=== PATIENT | female | born 1985 | race African-American/Black ===

== ENCOUNTER 2016-10-01 09:54 | Day surgery (SDC) | payer OTHER ==
[2016-09-30 10:54] LABS: HEMOGLOBIN 14.2 g/dL (12.0-15.5); HGB HCT DIFFERENCE 0.6; MEAN CORPUSCULAR HGB CONC 33.7 g/dL (32.0-36.0); MEAN CORPUSCULAR VOLUME 89 fl (80-97); RED BLOOD COUNT 4.73 10^6/uL (3.72-5.28); RED CELL DISTRIBUTION WIDTH 13.5 % (11.5-14.0); WHITE BLOOD COUNT 6.8 10^3/uL (4.0-10.5)
[2016-09-30 10:58] LABS: APPEARANCE,URINE CLEAR; BILIRUBIN,URINE NEGATIVE (NEGATIVE); GLUCOSE, URINE NEGATIVE (NEGATIVE); KETONES,URINE NEGATIVE (NEGATIVE); LEUKOCYTE ESTERASE,URINE NEGATIVE (NEGATIVE); NITRITE,URINE NEGATIVE (NEGATIVE); PROTEIN,URINE NEGATIVE (NEGATIVE); URINE SPECIFIC GRAVITY 1.014; UROBILINOGEN,URINE NEGATIVE mg/dL (<2.0)
[~2016-10-01 09:54] MED LIST: LACTATED RINGERS 1000 ML IV PRN
[2016-10-01] MEDS ORDERED: ALBUTEROL SULFATE 0.083% NEB 2.5 MG/3 ML AMPUL NEB ONE (10:21)
[2016-10-01] MEDS ORDERED: MIDAZOLAM 2 MG/2 ML INJ ONE (11:30)
[2016-10-01] MEDS ORDERED: FENTANYL CITRATE INJ/PF 100 MCG/2 ML AMPUL ONE (11:30)
[2016-10-01] MEDS ORDERED: MORPHINE SULFATE 10 MG/ML INJ ONE (11:31)
[2016-10-01] MEDS ORDERED: PROPOFOL INJ 200 MG/20 ML VIAL IV ONE (11:31)
[2016-10-01] MEDS ORDERED: ACETAMINOPHEN 0 ML IV ONE (11:31)
[2016-10-01] MEDS ORDERED: METHYLENE BLUE/PF INJ 100 MG/10 ML SDV ONE (11:31)
--- NOTE | 2016-10-01 12:04 | EKG REPORT ---
SEVERITY:- NORMAL ECG - SINUS RHYTHM : Confirmed by: Renata Durand 01-Oct-2016 12:02:49
[2016-10-01] MEDS ORDERED: IBUPROFEN INJ 800 MG/8 ML VIAL IV ONE (12:15)
[2016-10-01 12:26] LABS: ANION GAP 10 (5-19); BLOOD UREA NITROGEN 13 mg/dL (7-20); CALCIUM 9.5 mg/dL (8.4-10.2); CARBON DIOXIDE 28 mmol/L (22-30); CHLORIDE 104 mmol/L (98-107); CREATININE RESULT 0.84 mg/dL (0.52-1.25); GLUCOSE 102 mg/dL (75-110); POTASSIUM 4.7 mmol/L (3.6-5.0); SODIUM 141.8 mmol/L (137-145)
[2016-10-01] MEDS ORDERED: MEPERIDINE HCL/PF INJ 25 MG/1 ML DISP.SYRIN IV PRN (12:27)
[2016-10-01] MEDS ORDERED: FENTANYL CITRATE INJ/PF 100 MCG/2 ML AMPUL IV PRN ×3 (12:27)
[2016-10-01] MEDS ORDERED: MORPHINE SULFATE 10 MG/ML INJ IV PRN (12:27)
[2016-10-01] MEDS ORDERED: DIPHENHYDRAMINE HCL 50 MG/ML VIAL IV PRN (12:27)
[2016-10-01] MEDS ORDERED: PROMETHAZINE HCL INJ 25 MG/1 ML VIAL IV PRN ×2 (12:27)
--- NOTE | 2016-10-01 13:03 | Operative Report ---
Operative Report DATE OF SURGERY: 10/01/16 PREOPERATIVE DIAGNOSIS: Pelvic pain POSTOPERATIVE DIAGNOSIS: Endometriosis OPERATION: Diagnostic laparoscopy with cautery of endometriosis with the Harmonic scalpel SURGEON: YASMANY LUCAS ANESTHESIA: GA TISSUE REMOVED OR ALTERED: Cautery of endometriosis in the posterior cul-de-sac COMPLICATIONS: None ESTIMATED BLOOD LOSS: minimal INTRAOPERATIVE FINDINGS: Endometriosis in the posterior cul-de-sac. PROCEDURE: The patient was taken to the OR and placed in supine position. Gen. anesthesia was induced. She was placed in low dorsal lithotomy position using Faraz stirrups. Her abdomen perineum and vagina were prepared and draped in sterile fashion. Bladder was drained with red rubber catheter. A sponge stick was placed in the vagina for manipulation of the uterus. An incision was made the umbilicus natural umbilical defect identified and 5 mm port placed with appropriate placement by laparoscopy. The abdomen was insufflated with CO2 gas. The pelvis was good. The suprapubic incision was made and a 5 mm port placed under laparoscopic visualization. A left lateral port was placed in the laparoscopic visualization as well. Tubes and ovaries uterus appeared normal. Posterior cul-de-sac had several areas of endometriosis using the Harmonic scalpel these were cauterized. Some of the lesions were cystic in nature and drained dark fluid. At the end of the case hemostasis was good. The ports were removed. The gas was allowed to escape from the abdomen. The umbilical port and scope were removed at same time. The fascia at the umbilicus was closed with 2-0 Vicryl stitch and skin closed with 4-0 undyed Vicryl stitch at all 3 sites. She was extubated and taken to the recovery room in stable condition.
[2016-10-01] MEDS ORDERED: KETOROLAC TROMETHAMINE INJ/PF 30 MG/1 ML SDV IV PRN (13:31)
[2016-10-01] MEDS ORDERED: IBUPROFEN 800 MG TABLET PO PRN (13:31)
[2016-10-01] MEDS ORDERED: OXYCODONE HCL IR 5 MG TABLET PO PRN ×2 (13:32)
[2016-10-01] MEDS ORDERED: SUCCINYLCHOLINE CHLORIDE INJ 200 MG/10 ML VIAL ONE (13:49)
[2016-10-01] MEDS ORDERED: ROCURONIUM BROMIDE INJ 50 MG/5 ML VIAL IV ONE (13:49)
[2016-10-01] MEDS ORDERED: GLYCOPYRROLATE INJ 0.4 MG/2 ML VIAL ONE (13:49)
[2016-10-01] MEDS ORDERED: ONDANSETRON HCL INJ/PF 4 MG/2 ML SDV ONE (13:49)
[2016-10-01] MEDS ORDERED: DEXAMETHASONE SOD PHOSPHATE INJ 4 MG/1 ML VIAL ONE (13:49)
[2016-10-01] MEDS ORDERED: PHENYLEPHRINE HCL INJ/PF 10 MG/1 ML SDV ONE (13:49)
[2016-10-01] MEDS ORDERED: NEOSTIGMINE METHYLSULFATE 10 MG/10 ML VIAL ONE (13:49)
[2016-10-01 15:22] VITALS: BP 108/72
== END 2016-10-01 15:30 | disposition home or self-care (01) ==
LOC: OROUT 09:54
PROVIDERS: ATTEND Obstetrics & Gynecology
PROC: 0UQF4ZZ Repair Cul-de-sac, Percutaneous Endoscopic Approach (ICD-10-PCS; principal; 2016-10-01 11:45)
DX: N80.3 Endometriosis of pelvic peritoneum (principal); R10.2 Pelvic and perineal pain; N91.2 Amenorrhea, unspecified; J45.909 Unspecified asthma, uncomplicated; E28.2 Polycystic ovarian syndrome; E05.00 Thyrotoxicosis with diffuse goiter without thyrotoxic crisis or storm; E06.3 Autoimmune thyroiditis; Z87.891 Personal history of nicotine dependence; Z79.84 Long term (current) use of oral hypoglycemic drugs; Z79.51 Long term (current) use of inhaled steroids; Z79.899 Other long term (current) drug therapy
CPT/HCPCS: 36415 ×2; 83735; 85027; 81005; 81025; 80048; 93005; 93010; 94640; 58662; J2250; J3490; J1100; J3010; J2270; J2370; J0330; J2405; J2704; J1741; 840; J0131; Q9968

== ENCOUNTER 2017-05-13 14:31 | Emergency (ER) | payer OTHER ==
[2017-05-13] MEDS ORDERED: NORMAL SALINE 1000 ML 1,000 ML IV ONE (15:23)
[2017-05-13 15:56] LABS: ABSOLUTE EOSINOPHILS # (AUTO) 0.1 10^3/uL (0.0-0.6); ABSOLUTE LYMPHOCYTES (AUTO) 2.3 10^3/uL (0.5-4.7); ABSOLUTE MONOCYTES (AUTO) 0.6 10^3/uL (0.1-1.4); ABSOLUTE NEUT (AUTO) 9.9 10^3/uL (1.7-8.2); BASOPHILS % (AUTO) 0.3 % (0-2); EOSINOPHILS % (AUTO) 0.7 % (0-6); HEMATOCRIT 40.1 % (36.0-47.0); HEMOGLOBIN 13.4 g/dL (12.0-15.5); HGB HCT DIFFERENCE 0.1; LYMPHOCYTES % (AUTO) 17.5 % (13-45); MEAN CORPUSCULAR HEMOGLOBIN 29.5 pg (27.0-33.4); MEAN CORPUSCULAR HGB CONC 33.3 g/dL (32.0-36.0); MEAN CORPUSCULAR VOLUME 89 fl (80-97); MONOCYTES % (AUTO) 4.5 % (3-13); RED BLOOD COUNT 4.52 10^6/uL (3.72-5.28); RED CELL DISTRIBUTION WIDTH 13.1 % (11.5-14.0); WHITE BLOOD COUNT 12.9 10^3/uL (4.0-10.5)
[2017-05-13 16:15] LABS: ALANINE AMINOTRANSFERASE 20 U/L (9-52); ALBUMIN 3.6 g/dL (3.5-5.0); ALKALINE PHOSPHATASE 99 U/L (38-126); ANION GAP 12 (5-19); ASPARTATE AMINO TRANSFERASE 16 U/L (14-36); BILIRUBIN,DIRECT 0.1 mg/dL (0.0-0.4); BILIRUBIN,TOTAL 0.3 mg/dL (0.2-1.3); BLOOD UREA NITROGEN 8 mg/dL (7-20); CALCIUM 9.4 mg/dL (8.4-10.2); CARBON DIOXIDE 23 mmol/L (22-30); CHLORIDE 103 mmol/L (98-107); CREATINE KINASE 83 U/L (30-135); CREATININE RESULT 0.66 mg/dL (0.52-1.25); GLUCOSE 311 mg/dL (75-110); POTASSIUM 4.6 mmol/L (3.6-5.0); SODIUM 137.6 mmol/L (137-145); TOTAL PROTEIN 6.7 g/dL (6.3-8.2)
[2017-05-13 16:25] LABS: CREATINE KINASE MB 2.24 ng/mL (<4.55)
[2017-05-13 16:27] LABS: TROPONIN I 0.349 ng/mL
[2017-05-13 16:45] LABS: THYROID STIMULATING HORMONE 2.23 uIU/mL (0.47-4.68)
--- NOTE | 2017-05-13 17:13 | RADIOLOGY REPORT (SQ) ---
EXAM DESCRIPTION: CTA CHEST COMPLETED DATE/TIME: 05/13/2017 4:58 pm REASON FOR STUDY: evaled d dimer COMPARISON: None. TECHNIQUE: CT scan of the chest performed using helical scanning technique with dynamic intravenous contrast injection. Images reviewed with lung, soft tissue and bone windows. Reconstructed coronal and sagittal MPR images reviewed. Additional 3 dimensional post-processing performed to develop Maximal Intensity Projection images (SD P). All images stored on PACS. All CT scanners at this facility use dose modulation, iterative reconstruction, and/or weight based d osing when appropriate to reduce radiation dose to as low as reasonably achievable (ALARA). [facility]: Dose Right [facility]: CareDose [facility]: Dose Right [facility]: Teradose 4D [facility]: [place] CONTRAST TYPE AND DOSE: contrast/concentration: Isovue 370.00 mg/ml; Total Contrast Delivered: 80.0 ml; Total Saline Delivered: 110.1 ml Contrast bolus optimized for the pulmonary arteries. Not diagnostic for the aorta. RENAL FUNCTION: GFR > 60. RADIATION DOSE: CT Rad equipment meets quality standard of care and radiation dose reduction techniq ues were employed. CTDIvol: 6.6 - 39.7 mGy. DLP: 649 mGy-cm. . LIMITATIONS: None. FINDINGS: LUNGS AND PLEURA: No masses, infiltrates, pneumothorax. No pleural effusions, calcificati ons. AORTA AND GREAT VESSELS: No aneurysm. Contrast bolus not optimized for the aorta. HEART: No pericardial effusion. No significant coronary artery calcifications. PULMONARY ARTERIES: Extensive emboli visualized in the main pulmonary arteries and the segmental bran ches; additionally there is a small saddle embolus component. No thrombus identified in the right ve ntricle. HILAR AND MEDIASTINAL STRUCTURES: No identified masses or abnormal nodes. HARDWARE: None in the chest. UPPER ABDOMEN: No significant findings. Limited exam. THYROID AND OTHER SOFT TISSUES: No masses. No adenopathy. BONES: No acute or significant finding. 3D MIPS: Confirm above findings. OTHER: No other significant finding. IMPRESSION: Extensive emboli visualized in the main pulmonary arteries and the segmental branches; a dditionally there is a small saddle embolus component. No thrombus identified in the right ventricle. COMMENT: These results were called to Dr. Alvarado at 1704 hours. Results were confirmed and read b ack. Quality ID # [id number]: Final reports with documentation of one or more dose reduction techniques (e.g., Au tomated exposure control, adjustment of the mA and/or kV according to patient size, use of iterative reconstruction technique) TECHNICAL DOCUMENTATION: JOB ID: [id number] [place]-72 2010 [employer]- All Rights Reserved
[2017-05-13 17:33] LABS: PROTHROMBIN TIME 13.2 SEC (11.4-15.4)
[2017-05-13 17:34] LABS: PARTIAL THROMBOPLASTIN TIME 31.9 SEC (23.5-35.8)
--- NOTE | 2017-05-13 17:41 | ER Document Report ---
ED General - General Chief Complaint: Chest Pain Stated Complaint: CHEST PAIN Time Seen by Provider: 05/13/17 14:42 TRAVEL OUTSIDE OF THE [place]. IN LAST 30 DAYS: No - HPI Patient complains to provider of: Palpitations Notes: Patient coming in for palpitations. States ongoing for the last 2 days. Patient also states substernal chest pain especially when the patient is moving around. Patient states recently treated with antibiotics for cough is nonproductive. Patient also complains of some underlying weight gain and fatigue. Patient resting comfortably upon my evaluation patient is tachycardic with a heart rate past between 100-120. Denies any recent travel patient states currently on control. No smoking no drugs alcohol. - Related Data Allergies/Adverse Reactions: acetaminophen [From Tylenol] Allergy (Mild, Verified 09/30/16 10:09) Hives Adhesive Bandage * [Adhesive Bandage] Allergy (Mild, Verified 09/30/16 10:09) RASH yeast, dried [Yeast] Allergy (Mild, Verified 09/30/16 10:09) Hives Past Medical History - Social History Smoking Status: Never Smoker Chew tobacco use (# tins/day): No Frequency of alcohol use: None Drug Abuse: None Family History: Reviewed & Not Pertinent Patient has suicidal ideation: No Patient has homicidal ideation: No - Past Medical History Cardiac Medical History: Denies: Hx Coronary Artery Disease, Hx Heart Attack, Hx Hypertension Pulmonary Medical History: Reports: Hx Asthma - MILD, MOD WITH EXERCISE Denies: Hx Bronchitis, Hx COPD, Hx Pneumonia Neurological Medical History: Denies: Hx Cerebrovascular Accident, Hx Seizures Renal/ Medical History: Denies: Hx Peritoneal Dialysis Musculoskeltal Medical History: Denies Hx Arthritis Past Surgical History: Reports: Hx Abdominal Surgery - Immunizations Hx Diphtheria, Pertussis, Tetanus Vaccination: Yes Review of Systems - Review of Systems Constitutional: No symptoms reported EENT: No symptoms reported Cardiovascular: No symptoms reported Respiratory: No symptoms reported Gastrointestinal: No symptoms reported Genitourinary: No symptoms reported Female Genitourinary: No symptoms reported Musculoskeletal: No symptoms reported Skin: No symptoms reported Hematologic/Lymphatic: No symptoms reported Neurological/Psychological: No symptoms reported Physical Exam - Vital signs Vitals: Pulse Ox 99 05/13/17 14:43 Interpretation: Tachycardic - General General appearance: Appears well, Alert - HEENT Head: Normocephalic, Atraumatic Eyes: Normal Pupils: PERRL - Respiratory Respiratory status: No respiratory distress Chest status: Nontender Breath sounds: Normal Chest palpation: Normal - Cardiovascular Rhythm: Tachycardia Heart sounds: Normal auscultation Murmur: No - Abdominal Inspection: Normal Distension: No distension Bowel sounds: Normal Tenderness: Nontender Organomegaly: No organomegaly - Back Back: Normal, Nontender - Extremities General upper extremity: Normal inspection, Nontender, Normal color, Normal ROM , Normal temperature General lower extremity: Normal inspection, Nontender, Normal color, Normal ROM , Normal temperature, Normal weight bearing. No: Indio's sign - Neurological Neuro grossly intact: Yes Cognition: Normal Orientation: AAOx4 [place] Coma Scale Eye Opening: Spontaneous [place] Coma Scale Verbal: Oriented [place] Coma Scale Motor: Obeys Commands [place] Coma Scale Total: 15 Speech: Normal Motor strength normal: LUE, RUE, LLE, RLE Sensory: Normal - Psychological Associated symptoms: Normal affect, Normal mood - Skin Skin Temperature: Warm Skin Moisture: Dry Skin Color: Normal Course - Re-evaluation Re-evalutation: 05/13/17 17:35 Patient confirmed to have extensive PE load bilaterally also with a saddle component. Discussed briefly with the hospitalist who recommended transfer to tertiary care facility for possible lytic procedure. Discussed with Dr. Lawler of [facility] who accepted the patient in transfer however at this time request that we hold off on initiating anticoagulation therapy is that she is not familiar with the procedure at their facility and thinks that is heparin or Lovenox may be contraindicated to performing catheter directed thrombolytic therapy. Will contact their team for further information and will call me back with the correct intact coagulation agent otherwise patient remained stable no signs of hypoxia hypotension cor pulmonale. 05/13/17 17:39 05/13/17 17:57 Return phone call from Dr. Lawler recommends anticoagulation with either heparin or Lovenox if there is no contraindication further cath directed thrombolytic therapy at [facility]. Patient will be started on Lovenox. - Vital Signs Vital signs: Temp Pulse Resp BP Pulse Ox 98.6 F 18 119/90 H 100 05/13/17 17:05 05/13/17 17:05 05/13/17 17:05 05/13/17 17:05 - Laboratory Result Diagrams: 05/13/17 15:33 05/13/17 15:33 Laboratory results interpreted by me: 05/13/17 05/13/17 05/13/17 15:33 15:33 15:33 WBC 12.9 H Absolute Neutrophils 9.9 H D-Dimer 3.22 H Glucose 311 H NT-Pro-B Natriuret Pep 05/13/17 15:33 WBC Absolute Neutrophils D-Dimer Glucose NT-Pro-B Natriuret Pep 1840 H Discharge - Discharge Clinical Impression: Pulmonary embolism Qualifiers: Pulmonary embolism type: saddle Chronicity: acute Acute cor pulmonale presence : without acute cor pulmonale Qualified Code(s): I26.92 - Saddle embolus of pulmonary artery without acute cor pulmonale Referrals: SELIN ALEJO DO [Primary Care Provider] - Follow up as needed
[2017-05-13] MEDS ORDERED: ENOXAPARIN SODIUM INJ 100 MG/1 ML DISP.SYRIN SUBCUT SCH (18:00)
--- NOTE | 2017-05-13 18:51 | EKG REPORT ---
SEVERITY:- BORDERLINE ECG - SINUS TACHYCARDIA BORDERLINE T ABNORMALITIES, INFERIOR LEADS : Confirmed by: Turner Olson MD 13-May-2017 18:50:05
[2017-05-13 19:26] LABS: APPEARANCE,URINE CLEAR; BILIRUBIN,URINE NEGATIVE (NEGATIVE); GLUCOSE, URINE >=500 mg/dL (NEGATIVE); KETONES,URINE TRACE mg/dL (NEGATIVE); LEUKOCYTE ESTERASE,URINE NEGATIVE (NEGATIVE); NITRITE,URINE NEGATIVE (NEGATIVE); PROTEIN,URINE NEGATIVE (NEGATIVE); UROBILINOGEN,URINE NEGATIVE mg/dL (<2.0)
[2017-05-13 19:33] LABS: URINE SPECIFIC GRAVITY > 1.060
--- NOTE | 2017-05-13 21:33 | ER Document Report ---
Doctor's Note Notes: 05/13/17 21:33 Transport has arrived for the patient. Her vital signs are stable with heart rate of 105, blood pressure 123/83, pulse ox 99%. She feels well and she is comfortable at this time.
[2017-05-13 22:02] VITALS: BP 123/83
== END 2017-05-13 21:50 | disposition short-term general hospital (02) ==
LOC: ER 14:31
DX: I26.92 Saddle embolus of pulmonary artery without acute cor pulmonale (principal); R07.9 Chest pain, unspecified; R00.2 Palpitations; R05 Cough
CPT/HCPCS: 93005; 99285; 96372; 96360; 36415; 84439; 82553; 82550; 84702; 83735; 84443; 85025; 85610; 85730; 80053; 81001; 84484; 85379; 83880; 71275; 93010; J7030; J1650

== ENCOUNTER 2017-05-29 22:00 | Emergency (ER) | payer OTHER ==
[2017-05-29] MEDS ORDERED: PANTOPRAZOLE SODIUM 40 MG VIAL IV ONE (22:48)
[2017-05-29] MEDS ORDERED: NORMAL SALINE 1000 ML 1,000 ML IV ONE (22:48)
[2017-05-29] MEDS ORDERED: FAMOTIDINE 20 MG TABLET PO ONE (22:48)
[2017-05-29] MEDS ORDERED: SUCRALFATE 1 GM TABLET PO ONE (22:48)
--- NOTE | 2017-05-29 23:17 | ER Document Report ---
ED GI/ - General Mode of Arrival: Ambulatory Information source: Patient TRAVEL OUTSIDE OF THE [place] IN LAST 30 DAYS: No - HPI Patient complains to provider of: Abdominal pain Onset: This afternoon - 1400 Location: Epigastric Associated symptoms: Other - see notes above <RANDEE CAIN - Last Filed: 05/30/17 00:08> <PAMELAYADIEL ANN - Last Filed: 05/30/17 01:56> - General Chief Complaint: Abdominal Pain Stated Complaint: ABDOMINAL PAIN Time Seen by Provider: 05/29/17 22:31 Notes: 32 year old female with history of pulmonary emboli (05/13/2017; medicated with Eliquis) presents to the ED complaining of epigastric abdominal pain that started earlier this afternoon around 1400 while eating a chicken salad. Patient reports she has pain while eating, but does not acknowledge any pain after eating. Patient denies any bleeding, difficulty or painful breathing, or nausea. (RANDEE CAIN) - Related Data Allergies/Adverse Reactions: acetaminophen [From Tylenol] Allergy (Mild, Verified 09/30/16 10:09) Hives Adhesive Bandage * [Adhesive Bandage] Allergy (Mild, Verified 09/30/16 10:09) RASH yeast, dried [Yeast] Allergy (Mild, Verified 09/30/16 10:09) Hives Past Medical History - General Information source: Patient - Social History Smoking Status: Never Smoker Frequency of alcohol use: None Family History: Reviewed & Not Pertinent - Past Medical History Cardiac Medical History: Denies: Hx Coronary Artery Disease, Hx Heart Attack, Hx Hypertension Pulmonary Medical History: Reports: Hx Asthma - MILD, MOD WITH EXERCISE Denies: Hx Bronchitis, Hx COPD, Hx Pneumonia Neurological Medical History: Denies: Hx Cerebrovascular Accident, Hx Seizures Renal/ Medical History: Reports: Hx Ovarian Cysts, Other - endometriosis. Denies: Hx Peritoneal Dialysis Musculoskeltal Medical History: Denies Hx Arthritis Past Surgical History: Reports: Hx Abdominal Surgery, Hx Section - Immunizations Hx Diphtheria, Pertussis, Tetanus Vaccination: Yes <RANDEE CAIN - Last Filed: 05/30/17 00:08> Review of Systems - Review of Systems Constitutional: No symptoms reported EENT: No symptoms reported Cardiovascular: No symptoms reported Respiratory: No symptoms reported. denies: Hurts to breathe, Short of breath Gastrointestinal: See HPI, Abdominal pain. denies: Nausea Genitourinary: No symptoms reported Female Genitourinary: No symptoms reported Musculoskeletal: No symptoms reported Skin: No symptoms reported Hematologic/Lymphatic: No symptoms reported Neurological/Psychological: No symptoms reported -: Yes All other systems reviewed and negative <RANDEE CAIN - Last Filed: 05/30/17 00:08> Physical Exam - General General appearance: Alert In distress: None - HEENT Head: Normocephalic, Atraumatic Eyes: Normal Extraocular movements intact: Yes Pupils: PERRL - Respiratory Respiratory status: No respiratory distress Breath sounds: Normal - Cardiovascular Rhythm: Regular Heart sounds: Normal auscultation - Abdominal Inspection: Normal Distension: No distension Bowel sounds: Normal Tenderness: Tender - epigastric tenderness to palpation - Back Back: Normal - Extremities General upper extremity: Normal inspection, Normal ROM General lower extremity: Normal inspection, Normal ROM - Neurological Neuro grossly intact: Yes Cognition: Normal Orientation: AAOx4 [place] Coma Scale Eye Opening: Spontaneous [place] Coma Scale Verbal: Oriented [place] Coma Scale Motor: Obeys Commands [place] Coma Scale Total: 15 - Psychological Associated symptoms: Normal affect, Normal mood - Skin Skin Temperature: Warm Skin Moisture: Dry Skin Color: Normal <RANDEE CAIN - Last Filed: 05/30/17 00:08> Course - Laboratory Result Diagrams: 05/29/17 23:55 05/29/17 23:55 <RANDEE CAIN - Last Filed: 05/30/17 00:08> - Laboratory Result Diagrams: 05/29/17 23:55 05/29/17 23:55 - Diagnostic Test Radiology reviewed: Reports reviewed <YADIEL SANTIAGO - Last Filed: 05/30/17 01:56> - Re-evaluation Re-evalutation: 05/30/17 00:08 Patient has been re-evaluated and states that she is feeling better now. Patient informed that she will be re-evaluated upon receipt of lab results. ( RANDEE CAIN) 05/30/17 01:51 Patient is ultrasound showing gallstones but no evidence of infection. Blood work that his back is within normal limits. Patient is feeling completely better. Chemistry is hemolyzed. Laboratory to redraw. Patient would prefer to just go home and return if she feels worse than keep getting stuck for blood. She is very reasonable. Symptoms are more consistent with gastritis. She is not anemic and has had no dark stool. She will be discharged home with omeprazole, ranitidine, and Carafate. Return if any worsening or concerning symptoms. Stable for discharge. No further abdominal pain or tenderness to palpation. AVSS. (YADIEL SANTIAGO) - Laboratory Laboratory results interpreted by me: 05/29/17 23:55 WBC 12.3 H Discharge <RANDEE CAIN - Last Filed: 05/30/17 00:08> <YADIEL SANTIAGO - Last Filed: 05/30/17 01:56> - Discharge Clinical Impression: Epigastric pain Condition: Stable Disposition: HOME, SELF-CARE Instructions: Evaluation of Upper Abdominal Pain ([facility]) Prescriptions: Omeprazole 20 mg PO DAILY #30 tablet. Ranitidine HCl 150 mg PO BID #60 tablet Sucralfate [Carafate 1 gm Tablet] 1 gm PO ACHS #60 tablet Forms: Return to Work Referrals: SELIN ALEJO DO [Primary Care Provider] - Follow up as needed Scribe Attestation: 05/30/17 01:56 I personally performed the services described in the documentation, reviewed and edited the documentation which was dictated to the scribe in my presence, and it accurately records my words and actions. (YADIEL SANTIAGO) Scribe Documentation - Scribe Written by Scribe:: Owen Zepeda, 05/29/2017 [id number] acting as scribe for :: Pamela <RANDEE CAIN - Last Filed: 05/30/17 00:08>
[2017-05-30 00:04] LABS: ABSOLUTE BASOPHILS # (AUTO) 0.1 10^3/uL (0.0-0.2); ABSOLUTE EOSINOPHILS # (AUTO) 0.4 10^3/uL (0.0-0.6); ABSOLUTE LYMPHOCYTES (AUTO) 3.7 10^3/uL (0.5-4.7); ABSOLUTE MONOCYTES (AUTO) 0.6 10^3/uL (0.1-1.4); ABSOLUTE NEUT (AUTO) 7.5 10^3/uL (1.7-8.2); HEMOGLOBIN 13.9 g/dL (12.0-15.5); LYMPHOCYTES % (AUTO) 30.5 % (13-45); MEAN CORPUSCULAR HEMOGLOBIN 29.8 pg (27.0-33.4); MEAN CORPUSCULAR HGB CONC 33.8 g/dL (32.0-36.0); MEAN CORPUSCULAR VOLUME 88 fl (80-97); MONOCYTES % (AUTO) 4.8 % (3-13); PLATELET COUNT 406 10^3/uL (150-450); RED BLOOD COUNT 4.66 10^6/uL (3.72-5.28); RED CELL DISTRIBUTION WIDTH 13.1 % (11.5-14.0); SEGMENTED NEUTROPHILS % (AUTO) 60.7 % (42-78); TOTAL CELLS COUNTED % (AUTO) 100 %; WHITE BLOOD COUNT 12.3 10^3/uL (4.0-10.5)
[2017-05-30 00:50] LABS: PARTIAL THROMBOPLASTIN TIME 32.6 SEC (23.5-35.8); PROTHROMBIN TIME 13.9 SEC (11.4-15.4)
[2017-05-30 00:54] LABS: APPEARANCE,URINE CLEAR; BILIRUBIN,URINE NEGATIVE (NEGATIVE); COLOR,URINE STRAW; GLUCOSE, URINE NEGATIVE (NEGATIVE); KETONES,URINE NEGATIVE (NEGATIVE); LEUKOCYTE ESTERASE,URINE NEGATIVE (NEGATIVE); NITRITE,URINE NEGATIVE (NEGATIVE); PROTEIN,URINE NEGATIVE (NEGATIVE); URINE SPECIFIC GRAVITY 1.005; UROBILINOGEN,URINE NEGATIVE mg/dL (<2.0)
--- NOTE | 2017-05-30 01:21 | RADIOLOGY REPORT (SQ) ---
EXAM DESCRIPTION: U/S ABDOMEN LIMITED W/O DOP CLINICAL HISTORY: 32 years, Female, upper abd pain, nausea, evaluate GB COMPARISON: CT chest, 05/13/2017, report only. LIMITATIONS: None. FINDINGS: There is echogenicity of the anterior gallbladder small echogenic gallstones suspected anteriorly and shadowing of the remaining gallbladder consistent with a wall echo shadow triad suggesting severe cholelithiasis. Negative sonographic Mackey's test. No intra or extrahepatic ductal dilation. 0.4 cm common duct diameter. Pancreas, aorta, liver, and 11 cm right kidney appear normal size, shape, echotexture, and vascularity. No significant free fluid. IMPRESSION: 1.Ijfw-hnhi-behmvy appearance of the gallbladder suggests severe occult cholelithiasis. Differential diagnosis includes gallbladder calcification/neoplasm. Recommend correlation witih CR or CT of the abdomen. 2. No evidence of acute complication. 2010 [employer]- All Rights Reserved
[2017-05-30 01:58] VITALS: BP 119/61
== END 2017-05-30 02:18 | disposition home or self-care (01) ==
LOC: ER 22:00
DX: R10.13 Epigastric pain (principal); Z86.711 Personal history of pulmonary embolism; Z79.02 Long term (current) use of antithrombotics/antiplatelets
CPT/HCPCS: 99284; 96361; 96374; 36415; 85025; 85610; 85730; 81001; 76705; S0164; J7030; 80053; 83690

== ENCOUNTER → 2017-06-24 | Outpatient (CLI) | payer OTHER ==
--- NOTE | 2017-06-24 12:08 | RADIOLOGY REPORT (SQ) ---
EXAM DESCRIPTION: VENOUS UNILATERAL LOWER COMPLETED DATE/TIME: 06/24/2017 12:01 pm REASON FOR STUDY: PAIN M79.662 PAIN IN LEFT LOWER LEG COMPARISON: None. TECHNIQUE: Dynamic and static davison scale and color images acquired of the left leg venous system. Se lected spectral images acquired with additional compression and augmentation maneuvers. The contralat eral common femoral vein and saphenofemoral junction were also imaged. Images stored on PACS. LIMITATIONS: None. FINDINGS: LEFT COMMON FEMORAL: Normal phasicity, compression and augmentation. No visualized echogenic material on g ray scale. No defects on color images. FEMORAL: Normal compression and augmentation. No visualized echogenic material on davison scale. No defe cts on color images. POPLITEAL: Normal compression, augmentation. No visualized echogenic material on davison scale. No defec ts on color images. CALF VESSELS: Normal compression, augmentation. No visualized echogenic material on davison scale. No de fects on color images. GSV and SSV: Normal compression, augmentation. No visualized echogenic material on davison scale. No def ects on color images. ANY DEEP VENOUS INSUFFICIENCY: Not evaluated. ANY EVIDENCE OF POPLITEAL CYST: No. OTHER: No other significant finding. RIGHT COMMON FEMORAL VEIN AND SAPHENOFEMORAL JUNCTION: Normal phasicity, compression and augmentation. No visualized echogenic material on davison scale. No de fects on color images. IMPRESSION: NO EVIDENCE OF DVT OR SVT IN THE LEFT LEG. TECHNICAL DOCUMENTATION: JOB ID: [id number] [employer]- All Rights Reserved
== END ==
LOC: SP 11:20
PROVIDERS: ATTEND Family Medicine
DX: M79.662 Pain in left lower leg (principal)
CPT/HCPCS: 93971

== ENCOUNTER → 2017-07-08 | Outpatient (CLI) | payer OTHER ==
--- NOTE | 2017-07-08 10:53 | RADIOLOGY REPORT (SQ) ---
EXAM DESCRIPTION: L SPINE WHOLE COMPLETED DATE/TIME: 07/08/2017 10:22 am REASON FOR STUDY: LOW BACK PAIN M54.5 LOW BACK PAIN M76.62 ACHILLES TENDINITIS, LEFT LEG COMPARISON: None. NUMBER OF VIEWS: Five views including obliques. TECHNIQUE: AP, lateral, oblique, and sacral radiographic images acquired of the lumbar spine. LIMITATIONS: None. FINDINGS: MINERALIZATION: Normal. SEGMENTATION: Transitional vertebra. ALIGNMENT: Normal. VERTEBRAE: Maintained height. No fracture or worrisome bone lesion. DISCS: Disc space narrowing L5-S1. POSTERIOR ELEMENTS: Pedicles and facets are intact. No pars defect or posterior arch defects. HARDWARE: None in the spine. PARASPINAL SOFT TISSUES: Normal. PELVIS: Intact as visualized. No fractures or worrisome bone lesions. SI joints intact. OTHER: No other significant finding. IMPRESSION: Disc disease L5-S1. TECHNICAL DOCUMENTATION: JOB ID: [id number] [employer]- All Rights Reserved
--- NOTE | 2017-07-08 10:56 | RADIOLOGY REPORT (SQ) ---
EXAM DESCRIPTION: ANKLE LEFT COMPLETE COMPLETED DATE/TIME: 07/08/2017 10:22 am REASON FOR STUDY: ACHILLES TENDINITIS OF LEFT LOWER EXTREMITY M54.5 LOW BACK PAIN M76.62 ACHILLES TENDINITIS, LEFT LEG COMPARISON: None. NUMBER OF VIEWS: Three views. TECHNIQUE: AP, lateral, and oblique radiographic images acquired of the left ankle. LIMITATIONS: None. FINDINGS: MINERALIZATION: Normal. BONES: No acute fracture or dislocation. No worrisome bone lesions. JOINTS: No effusions. SOFT TISSUES: No soft tissue swelling. No foreign body. OTHER: No other significant finding. IMPRESSION: NEGATIVE STUDY OF THE LEFT ANKLE. NO RADIOGRAPHIC EVIDENCE OF ACUTE INJURY. TECHNICAL DOCUMENTATION: JOB ID: [id number] [employer]- All Rights Reserved
== END ==
LOC: RAD 09:39
PROVIDERS: ATTEND Family Medicine
DX: M54.5 Low back pain (principal); M76.62 Achilles tendinitis, left leg
CPT/HCPCS: 72110

== ENCOUNTER → 2017-08-10 | Outpatient (CLI) | payer OTHER ==
--- NOTE | 2017-08-10 16:45 | RADIOLOGY REPORT (SQ) ---
EXAM DESCRIPTION: MRI ABDOMEN COMBO COMPLETED DATE/TIME: 08/10/2017 3:23 pm REASON FOR STUDY: HEPATOMEGALY, NOT ELSEWHERE CLASSIFIED R16.0 HEPATOMEGALY, NOT ELSEWHERE CLASSIFI ED COMPARISON: None. TECHNIQUE: Multiplanar multisequence imaging performed without and with contrast including sagittal, axial and coronal T2, axial T1, axial gradient fat sat T1, axial, sagittal and coronal fat sat T1 po st contrast. CONTRAST TYPE AND DOSE: 20 mL Prohance. RENAL FUNCTION: None required. The patient is less than 50 years old. LIMITATIONS: None. FINDINGS: LIVER: Normal size. Mild steatosis. No masses. No dilated ducts. CBD normal. SPLEEN: Normal size. No focal lesions. PANCREAS: No masses. No adjacent inflammation or peripancreatic fluid collections. Pancreatic duct no t dilated. GALLBLADDER: Multiple gallstones. No gallbladder wall thickening or pericholecystic fluid. ADRENAL GLANDS: No significant masses or asymmetry. RIGHT KIDNEY AND URETER: No masses. No hydronephrosis. LEFT KIDNEY AND URETER: No masses. No hydronephrosis. AORTA AND VESSELS: No aneurysm. RETROPERITONEUM: No retroperitoneal adenopathy, hemorrhage or masses. BOWEL: No visualized masses. No inflammation. No significant dilatation. ABDOMINAL WALL AND PERITONEUM: No hernias. No free fluid. BONES: No acute or significant findings. OTHER: No other significant finding. IMPRESSION: Cholelithiasis. No acute findings. TECHNICAL DOCUMENTATION: JOB ID: [id number] [employer]- All Rights Reserved Reading location - IP/workstation name: [email or web address]
== END ==
LOC: RAD 14:12
PROVIDERS: ATTEND Family Medicine
DX: R16.0 Hepatomegaly, not elsewhere classified (principal)
CPT/HCPCS: 74183; A9576

== ENCOUNTER → 2019-07-26 | Outpatient (CLI) | payer OTHER ==
--- NOTE | 2019-07-26 13:39 | RADIOLOGY REPORT (SQ) ---
EXAM DESCRIPTION: CTA CHEST COMPLETED DATE/TIME: 07/26/2019 12:47 pm REASON FOR STUDY: R07.81 PLEURODYNIA, M79.662 PAIN IN LEFT LOWER LEG M79.662 PAIN IN LEFT LOWER LEG R07.81 PLEURODYNIA COMPARISON: 2016 TECHNIQUE: CT scan of the chest performed using helical scanning technique with dynamic intravenous contrast injection. Images reviewed with lung, soft tissue and bone windows. Reconstructed coronal and sagittal MPR images reviewed. Additional 3 dimensional post-processing performed to develop Maximal Intensity Projection images (IA P). All images stored on PACS. All CT scanners at this facility use dose modulation, iterative reconstruction, and/or weight based d osing when appropriate to reduce radiation dose to as low as reasonably achievable (ALARA). [facility]: Dose Right [facility]: CareDose [facility]: Dose Right [facility]: Teradose 4D [facility]: Kitchfix CONTRAST TYPE AND DOSE: contrast/concentration: Isovue 350.00 mg/ml; Total Contrast Delivered: 55.0 ml; Total Saline Delivered: 80.0 ml Contrast bolus adequate for pulmonary arteries and aorta. RENAL FUNCTION: GFR > 60. RADIATION DOSE: CT Rad equipment meets quality standard of care and radiation dose reduction techniq ues were employed. CTDIvol: 7.5 - 9.3 mGy. DLP: 353 mGy-cm. . LIMITATIONS: None. FINDINGS: LUNGS AND PLEURA: No masses, infiltrates, or pneumothorax. No pleural effusions or pleura l calcifications. AORTA AND GREAT VESSELS: No aneurysm. Contrast bolus not optimized for the aorta. HEART: No pericardial effusion. No significant coronary artery calcifications. PULMONARY ARTERIES: No emboli visualized in the main pulmonary arteries or the segmental branches. HILAR AND MEDIASTINAL STRUCTURES: No identified masses or abnormal nodes. HARDWARE: None in the chest. UPPER ABDOMEN: No significant findings. Limited exam. THYROID AND OTHER SOFT TISSUES: No masses. No adenopathy. BONES: No acute or significant finding. 3D MIPS: Confirm above findings. OTHER: No other significant finding. IMPRESSION: NORMAL CTA OF THE CHEST. NO PULMONARY EMBOLI. COMMENT: Quality ID # [id number]: Final reports with documentation of one or more dose reduction techniques (e.g., Automated exposure control, adjustment of the mA and/or kV according to patient size, use of iterative reconstruction technique) TECHNICAL DOCUMENTATION: JOB ID: [id number] [employer]- All Rights Reserved Reading location - IP/workstation name: [email or web address]
--- NOTE | 2019-07-26 16:49 | XCELERA REPORT ---
[address] [place] [facility] [address] Lower Extremity Venous Evaluation Procedure: Color flow and duplex imaging of the veins of the left lower extremity as well as the right Common Femoral vein. Right Sided Venous Evaluation The right common femoral vein is fully compressible. Spontaneous and phasic flow is present in the right common femoral vein. Left Sided Venous Evaluation Normal vessel filling wall to wall, compression and augmentation as well as Colour flow down to the infrageniculate veins. Interpretation Summary No duplex evidence of DVT or obstruction in the left lower extremity nor in the right Common Femoral vein. Name: MELLISA PALENCIA Age: 34 yrs Gender: Female : 1985 Patient Status: Outpatient Patient Location: Study Date: 07/26/2019 01:13 PM Reason For Study: LLE PAIN Ordering Physician: SELIN ALEJO Performed By: Carlos Major : SELIN ALEJO > Garry Jackson
== END ==
LOC: SP 12:05
PROVIDERS: ATTEND Family Medicine
DX: M79.662 Pain in left lower leg (principal); R07.81 Pleurodynia; Z86.711 Personal history of pulmonary embolism
CPT/HCPCS: 71275; 82565; 93971

== ENCOUNTER → 2020-01-22 | Outpatient (CLI) | payer OTHER ==
--- NOTE | 2020-01-22 15:54 | RADIOLOGY REPORT (SQ) ---
EXAM DESCRIPTION: LUMBAR SPINE COMPLETE IMAGES COMPLETED DATE/TIME: 01/22/2020 3:43 pm REASON FOR STUDY: NECK PAIN;DJD, LUMBOSACRAL; LEFT KNEE PAIN M25.562 PAIN IN LEFT KNEE M47.817 SPO NDYLS W/O MYELOPATHY OR RADICULOPATHY, LUMBOSACR M54.2 CERVICALGIA COMPARISON: None. NUMBER OF VIEWS: Five views including obliques. TECHNIQUE: AP, lateral, oblique, and sacral radiographic images acquired of the lumbar spine. LIMITATIONS: None. FINDINGS: MINERALIZATION: Normal. SEGMENTATION: Normal. No transitional anatomy. ALIGNMENT: Normal. VERTEBRAE: Maintained height. No fracture or worrisome bone lesion. DISCS: Preserved height. No significant osteophytes or end plate irregularity. POSTERIOR ELEMENTS: Pedicles and facets are intact. No pars defect or posterior arch defects. HARDWARE: None in the spine. PARASPINAL SOFT TISSUES: Normal. PELVIS: Intact as visualized. No fractures or worrisome bone lesions. SI joints intact. OTHER: No other significant finding. IMPRESSION: NORMAL 5 VIEW LUMBAR SPINE. TECHNICAL DOCUMENTATION: JOB ID: [id number] 2010 [employer]- All Rights Reserved Reading location - IP/workstation name: [email or web address]
--- NOTE | 2020-01-22 15:55 | RADIOLOGY REPORT (SQ) ---
EXAM DESCRIPTION: C SP 4 OR 5 VIEWS IMAGES COMPLETED DATE/TIME: 01/22/2020 3:43 pm REASON FOR STUDY: NECK PAIN;DJD, LUMBOSACRAL; LEFT KNEE PAIN M25.562 PAIN IN LEFT KNEE M47.817 SPO NDYLS W/O MYELOPATHY OR RADICULOPATHY, LUMBOSACR M54.2 CERVICALGIA COMPARISON: None. NUMBER OF VIEWS: Five views. TECHNIQUE: AP, lateral, obliques and odontoid radiographic images acquired of the cervical spine. LIMITATIONS: None. FINDINGS: MINERALIZATION: Normal. ALIGNMENT: Anatomic. VERTEBRAE: Vertebral bodies of normal height. DISCS: No significant osteophytes or sclerosis. Disc height maintained. FORAMINA: No osteophytes or foraminal narrowing. LATERAL AND POSTERIOR ELEMENTS: Facets, lateral masses and spinous processes without significant find ings. HARDWARE: None in the spine. SOFT TISSUES: No masses or calcifications. Lung apices clear. OTHER: No other significant finding. IMPRESSION: NO SIGNIFICANT RADIOGRAPHIC FINDING IN THE CERVICAL SPINE. TECHNICAL DOCUMENTATION: JOB ID: [id number] 2010 [employer]- All Rights Reserved Reading location - IP/workstation name: [email or web address]
--- NOTE | 2020-01-22 15:55 | RADIOLOGY REPORT (SQ) ---
EXAM DESCRIPTION: KNEE LEFT 4 VIEWS IMAGES COMPLETED DATE/TIME: 01/22/2020 3:43 pm REASON FOR STUDY: NECK PAIN;DJD, LUMBOSACRAL; LEFT KNEE PAIN M25.562 PAIN IN LEFT KNEE M47.817 SPO NDYLS W/O MYELOPATHY OR RADICULOPATHY, LUMBOSACR M54.2 CERVICALGIA COMPARISON: None. NUMBER OF VIEWS: Four views. TECHNIQUE: AP, lateral, and both oblique radiographic images acquired of the left knee. LIMITATIONS: None. FINDINGS: MINERALIZATION: Normal. BONES: No acute fracture or dislocation. No worrisome bone lesions. No significant osteophytes. JOINT: No effusion. No chondrocalcinosis. OTHER: No other significant finding. IMPRESSION: NEGATIVE STUDY OF THE LEFT KNEE. NO EXPLANATION FOR PAIN. TECHNICAL DOCUMENTATION: JOB ID: [id number] 2010 [employer]- All Rights Reserved Reading location - IP/workstation name: [email or web address]
== END ==
LOC: OD 15:02
PROVIDERS: ATTEND Family Medicine
DX: M54.2 Cervicalgia (principal); M25.562 Pain in left knee; M47.817 Spondylosis without myelopathy or radiculopathy, lumbosacral region
CPT/HCPCS: 72050; 72110